=== PATIENT | female | born 1975 | race Caucasian/White ===

== ENCOUNTER 2017-10-26 19:29 | Emergency (ER) | payer OTHER ==
[~2017-10-26] VITALS: Ht 170.2 cm; Wt 59.0 kg
[~2017-10-26 19:29] MED LIST: BACTRIM DS TAB1 EACH PO; HYCET 7.5 MG-3473 ML PO; IBUPROFEN 800800 M1 PO; PREDNISONE 20 M20 MG PO; PROAIR HFA8.5 GM INH; VISTARIL50 MG PO
[2017-10-26 20:44] LABS: ABSOLUTE EOSINOPHILS 0.1 thou/uL (0.0-0.7); ABSOLUTE LYMPHOCYTES 1.4 thou/uL (0.8-5.3); ABSOLUTE MONOCYTES 0.8 thou/uL (0.0-1.2); ABSOLUTE NEUTROPHILS 4.6 thou/uL (1.6-8.1); BASOPHILS 0.7 %; EOSINOPHILS 2.1 %; HEMATOCRIT 41.7 % (37.0-47.0); HEMOGLOBIN 14.4 gm/dL (12.0-15.0); LYMPHOCYTES 19.8 %; MCH 32.4 pg (26.0-34.0); MCHC 34.5 g/dL (28.0-37.0); MCV 93.7 fL (80.0-100.0); MPV 6.8 fl. (7.2-11.1); NUCLEATED RBCS 0 /100WBC; PLATELET COUNT* 323 thou/uL (150-400); POLYS 65.4 %; RBC 4.45 mil/uL (4.20-5.00); RDW-CV 13.5 % (10.5-14.5)
[2017-10-26 20:56] LABS: ANION GAP 7 mmol/L (7-16); BUN 10 mg/dL (7-18); CALCIUM 8.8 mg/dL (8.5-10.1); CHLORIDE 102 mmol/L (98-107); CO2 31 mmol/L (21-32); CREATININE 0.7 mg/dL (0.6-1.3); GLUCOSE 84 mg/dL (70-99); POTASSIUM 3.6 mmol/L (3.5-5.1); SODIUM 140 mmol/L (136-145)
[2017-10-26 21:01] LABS: ALBUMIN 3.4 g/dL (3.4-5.0); ALKALINE PHOSPHATASE 81 U/L (46-116); SGOT 20 U/L (15-37); SGPT 24 U/L (30-65); TOTAL BILIRUBIN 0.4 mg/dL (<0.1-1.0); TROPONIN-I LEVEL <0.06 ng/mL (<0.06)
[2017-10-26] MEDS ORDERED: AUGMENTIN 875-1 EACH PO (22:38)
[2017-10-26] MEDS ORDERED: BACTROBAN CREAM30 G1 TOP (22:39)
[2017-10-26] MEDS ORDERED: TORADOL 10 MG T10 MG PO (22:39)
[2017-10-26 22:50] VITALS: BP 147/89
== END 2017-10-26 22:51 | disposition home or self-care (01) ==
LOC: M.ERS 19:29
PROVIDERS: Physician Assistant
DX: R59.9 Enlarged lymph nodes, unspecified (principal); L01.00 Impetigo, unspecified; F17.210 Nicotine dependence, cigarettes, uncomplicated; F10.20 Alcohol dependence, uncomplicated; F12.20 Cannabis dependence, uncomplicated

== ENCOUNTER 2017-10-29 15:11 | Emergency (ER) | payer OTHER ==
[~2017-10-29] VITALS: Ht 167.6 cm; Wt 59.0 kg
[~2017-10-29 15:11] MED LIST changes: +AUGMENTIN 875-1 EACH PO; +BACTROBAN CREAM30 G1 TOP; +TORADOL 10 MG T10 MG PO
[2017-10-29] MEDS ORDERED: BACTRIM DS TAB1 EACH PO (15:44)
[2017-10-29] MEDS ORDERED: HYDROCODONE-AP1 EAC6 PO (15:44)
[2017-10-29] MEDS ORDERED: PHENERGAN 25 MG25 M1 PO (15:44)
[2017-10-29] MEDS ORDERED: BACTROBAN CREAM30 G1 TOP (15:47)
[2017-10-29 16:09] VITALS: BP 178/98
== END 2017-10-29 16:16 | disposition home or self-care (01) ==
LOC: M.ERS 15:11
DX: K12.2 Cellulitis and abscess of mouth (principal); F17.210 Nicotine dependence, cigarettes, uncomplicated; Z98.890 Other specified postprocedural states

== ENCOUNTER 2017-12-03 17:40 | Emergency (ER) | payer OTHER ==
[~2017-12-03] VITALS: Ht 167.6 cm; Wt 61.2 kg
[~2017-12-03 17:40] MED LIST changes: +HYDROCODONE-AP1 EAC6 PO; +PHENERGAN 25 MG25 M1 PO
[2017-12-03 18:36] LABS: URINE BILIRUBIN NEGATIVE (Negative); URINE BLOOD 1+ (Negative); URINE CLARITY CLEAR; URINE COLOR YELLOW; URINE GLUCOSE-RANDOM NEGATIVE (Negative); URINE KETONES TRACE (Negative); URINE LEUKOCYTES-REFLEX 1+ (Negative); URINE NITRITE-REFLEX NEGATIVE (Negative); URINE PROTEIN NEGATIVE (Negative); URINE SPECIFIC GRAVITY >= 1.030 (1.005-1.030); URINE UROBILINOGEN 0.2 E.U./dl (0.2-1.0)
[2017-12-03 18:52] LABS: AMP/METHAMP POSITIVE (Negative); BARBITURATES Negative (Negative); BENZODIAZEPINES Negative (Negative); COCAINE Negative (Negative); OPIATES Negative (Negative); PCP Negative (Negative); THC POSITIVE (Negative)
[2017-12-03] MEDS ORDERED: HYDROCODONE-AP1 EAC6 PO (18:58)
[2017-12-03] MEDS ORDERED: BACTRIM DS TAB1 EACH PO (19:01)
[2017-12-03 19:08] LABS: MUCUS 4-6 Moderate strn/LPF (None Seen); SQUAMOUS >10 Many /LPF (0-3)
[2017-12-03 19:09] LABS: BACTERIA-REFLEX 1-9 Few /HPF (None Seen); CASTS None Seen /LPF (None Seen); CRYSTALS None Seen /LPF (None Seen); URINE RBC 3-10 Few /HPF (0-2); URINE WBC-REFLEX 6-15 Few /HPF (0-5)
[2017-12-03 19:15] VITALS: BP 152/107
[2017-12-03 20:06] LABS: METHADONE Negative (Negative)
--- NOTE | 2017-12-04 14:27 | EKG ---
[place] [address] ELECTROCARDIOGRAM REPORT Name: YAO BLANCHARD Room: [facility]#: [id number] Admission: 12/03/17 Attend Phys: Discharge: 12/03/17 Date of : 77 Report #: [id number] THIS REPORT FOR: //name// [facility] ED Test Date: 2017-12-03 Test Time: 18:31:10 Pat Name: YAO BLANCHARD Department: Room: Gender: F [employer] Team Member: CLOTILDE : 1975 Requested By: Ekaterina Peters Order Number: [id number] MD: Deep Santoyo Measurements Intervals [place] Rate: 127 P: 69 NM: 145 QRS: 65 QRSD: 82 T: 9 QT: 310 QTc: 451 Interpretive Statements Sinus tachycardia LAE, consider biatrial enlargement No previous ECG available for comparison Electronically Signed On 12-04-2017 14:27:24 CDT by Deep Santoyo [email or web address] <ELECTRONICALLY SIGNED> By: Deep Santoyo MD, [facility] 12/04/17 1427 30 30 Deep Santoyo MD, FACC /EPI
== END 2017-12-03 19:15 | disposition home or self-care (01) ==
LOC: M.ERS 17:40
PROVIDERS: Physician Assistant
DX: M25.552 Pain in left hip (principal); F12.10 Cannabis abuse, uncomplicated; F15.10 Other stimulant abuse, uncomplicated; N39.0 Urinary tract infection, site not specified; F17.210 Nicotine dependence, cigarettes, uncomplicated; Z98.890 Other specified postprocedural states

== ENCOUNTER 2018-05-19 19:09 | Emergency (ER) | payer OTHER ==
[~2018-05-19] VITALS: Ht 170.2 cm; Wt 59.0 kg
[2018-05-19 19:28] LABS: HEMATOCRIT 46.6 % (37.0-47.0); HEMOGLOBIN 15.9 gm/dL (12.0-15.0); MCH 31.2 pg (26.0-34.0); MCV 91.7 fL (80.0-100.0); MPV 7.4 fl. (7.2-11.1); NUCLEATED RBCS 0 /100WBC; PLATELET COUNT* 237 thou/uL (150-400); RBC 5.09 mil/uL (4.20-5.00); RDW-CV 13.3 % (10.5-14.5); WBC 12.3 thou/uL (4.0-11.0)
[2018-05-19 19:40] LABS: ANION GAP 8 mmol/L (7-16); BUN 11 mg/dL (7-18); CALCIUM 9.4 mg/dL (8.5-10.1); CHLORIDE 99 mmol/L (98-107); CO2 29 mmol/L (21-32); CREATININE 1.2 mg/dL (0.6-1.3); GLUCOSE 123 mg/dL (70-99); POTASSIUM 3.1 mmol/L (3.5-5.1); SODIUM 136 mmol/L (136-145)
[2018-05-19 19:52] LABS: ALBUMIN 3.1 g/dL (3.4-5.0); ALKALINE PHOSPHATASE 108 U/L (46-116); NT-PRO BRAIN NAT PEPTIDE 663 pg/mL (<300); SGOT 23 U/L (15-37); SGPT 19 U/L (30-65); TOTAL BILIRUBIN 0.7 mg/dL (<0.1-1.0); TOTAL PROTEIN 7.9 g/dL (6.4-8.2); TROPONIN-I LEVEL <0.06 ng/mL (<0.06)
[2018-05-19 20:11] LABS: ABSOLUTE LYMPHOCYTES 0.9 thou/uL (0.8-5.3); ABSOLUTE NEUTROPHILS 10.5 thou/uL (1.6-8.1)
[2018-05-19 20:12] LABS: PLATELET ESTIMATE ADEQUATE
[2018-05-19 20:29] LABS: URINE BILIRUBIN NEGATIVE (Negative); URINE BLOOD 3+ (Negative); URINE CLARITY CLEAR; URINE COLOR YELLOW; URINE GLUCOSE-RANDOM NEGATIVE (Negative); URINE KETONES NEGATIVE (Negative); URINE NITRITE-REFLEX NEGATIVE (Negative); URINE PROTEIN NEGATIVE (Negative); URINE SPECIFIC GRAVITY <= 1.005 (1.005-1.030); URINE UROBILINOGEN 0.2 E.U./dl (0.2-1.0)
[2018-05-19 20:30] LABS: URINE LEUKOCYTES-REFLEX 3+ (Negative)
[2018-05-19 20:38] LABS: MUCUS None Seen strn/LPF (None Seen); SQUAMOUS >10 Many /LPF (0-3)
[2018-05-19 20:39] LABS: CASTS None Seen /LPF (None Seen); CRYSTALS None Seen /LPF (None Seen); URINE RBC 3-10 Few /HPF (0-2); URINE WBC-REFLEX >25 Many /HPF (0-5)
[2018-05-19 21:33] LABS: AMP/METHAMP POSITIVE (Negative); BARBITURATES Negative (Negative); BENZODIAZEPINES Negative (Negative); COCAINE Negative (Negative); METHADONE Negative (Negative); OPIATES POSITIVE (Negative); PCP Negative (Negative); THC POSITIVE (Negative)
[2018-05-19] MEDS ORDERED: CIPROFLOXACIN500 M1 PO (21:51)
[2018-05-19] MEDS ORDERED: ACETAMINOPHEN-1 EAC1 PO (21:51)
[2018-05-19 22:13] VITALS: BP 115/75
--- NOTE | 2018-05-20 16:31 | EKG ---
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 : 1975 Requested By: Carmen Bradley Order Number: [id number] MD: Cody Grey Measurements Intervals [place] Rate: 115 P: 72 NV: 104 QRS: 62 QRSD: 93 T: -80 QT: 419 QTc: 580 Interpretive Statements Sinus tachycardia Consider left ventricular hypertrophy Nonspecific T abnormalities, diffuse leads Prolonged QT interval Compared to ECG 12/03/2017 18:31:10 T-wave abnormality now present Prolonged QT interval now present Electronically Signed On 05-20-2018 16:31:14 CDT by Cody Grey [email or web address] <ELECTRONICALLY SIGNED> By: Cody Grey MD, [facility] 05/20/18 1631 16 16 Cody Grey MD, [facility] /EPI
== END 2018-05-19 22:17 | disposition home or self-care (01) ==
LOC: M.ERS 19:09
PROVIDERS: Emergency Medicine
DX: N39.0 Urinary tract infection, site not specified (principal); R51 Headache; R41.82 Altered mental status, unspecified; F17.210 Nicotine dependence, cigarettes, uncomplicated; G89.29 Other chronic pain; M25.552 Pain in left hip; Z98.890 Other specified postprocedural states

== ENCOUNTER 2019-03-28 20:15 | Emergency (ER) | payer OTHER ==
[~2019-03-28] VITALS: Ht 167.6 cm; Wt 61.2 kg
[~2019-03-28 20:15] MED LIST changes: +ACETAMINOPHEN-1 EAC1 PO; +CIPROFLOXACIN500 M1 PO
[2019-03-28 20:58] LABS: ABSOLUTE LYMPHOCYTES 0.8 thou/uL (0.8-5.3); ABSOLUTE MONOCYTES 1.8 thou/uL (0.0-1.2); ABSOLUTE NEUTROPHILS 14.7 thou/uL (1.6-8.1); BASOPHILS 0.1 %; HEMATOCRIT 41.7 % (37.0-47.0); HEMOGLOBIN 14.2 gm/dL (12.0-15.0); LYMPHOCYTES 4.8 %; MCH 30.7 pg (26.0-34.0); MCHC 34.1 g/dL (28.0-37.0); MCV 90.1 fL (80.0-100.0); MONOCYTES 10.5 %; MPV 7.4 fl. (7.2-11.1); NUCLEATED RBCS 0 /100WBC; PLATELET COUNT* 310 thou/uL (150-400); POLYS 84.6 %; RBC 4.63 mil/uL (4.20-5.00); RDW-CV 13.8 % (10.5-14.5); WBC 17.5 thou/uL (4.0-11.0)
[2019-03-28 21:08] LABS: ANION GAP 9 mmol/L (7-16); BUN 8 mg/dL (7-18); CHLORIDE 97 mmol/L (98-107); CO2 28 mmol/L (21-32); CREATININE 0.9 mg/dL (0.6-1.3); GLUCOSE 144 mg/dL (70-99); POTASSIUM 3.8 mmol/L (3.5-5.1); SODIUM 134 mmol/L (136-145)
[2019-03-28 21:18] LABS: ALBUMIN 3.3 g/dL (3.4-5.0); ALKALINE PHOSPHATASE 98 U/L (46-116); SGOT 19 U/L (15-37); SGPT 23 U/L (30-65); TOTAL PROTEIN 7.9 g/dL (6.4-8.2); TROPONIN-I LEVEL <0.06 ng/mL (<0.06)
[2019-03-28 21:20] LABS: AMP/METHAMP POSITIVE (Negative); BARBITURATES Negative (Negative); BENZODIAZEPINES Negative (Negative); COCAINE Negative (Negative); OPIATES Negative (Negative); PCP Negative (Negative); THC POSITIVE (Negative)
[2019-03-28 21:26] LABS: METHADONE Negative (Negative)
[2019-03-28 22:57] VITALS: BP 149/89
--- NOTE | 2019-03-29 10:51 | EKG ---
[place] [address] ELECTROCARDIOGRAM REPORT Name: YAO BLANCHARD Room: [facility]#: [id number] Admission: 03/28/19 Attend Phys: Discharge: 03/28/19 Date of : 77 Report #: [id number] THIS REPORT FOR: //name// [facility] ED Test Date: 2019-03-28 Test Time: 20:59:55 Pat Name: YAO BLANCHARD Department: Room: Gender: F [employer]: [place] : 1975 Requested By: Adam Green Order Number: [id number] MD: Bhanu Batres Measurements Intervals [place] Rate: 92 P: 75 MT: 121 QRS: 72 QRSD: 98 T: 57 QT: 385 QTc: 477 Interpretive Statements Sinus rhythm Nonspecific T abnormalities, anterior leads Compared to ECG 05/19/2018 19:17:03 Sinus tachycardia no longer present Prolonged QT interval no longer present T-wave abnormality still present Electronically Signed On 03-29-2019 10:51:01 CDT by Bhanu Batres [email or web address] <ELECTRONICALLY SIGNED> By: Bhanu Batres MD, [facility] 03/29/19 1051 58 58 Bhanu Batres MD, [facility] /EPI
== END 2019-03-28 22:59 | disposition home or self-care (01) ==
LOC: M.ERS 20:15
PROVIDERS: Emergency Medicine; Nurse Practitioner Family
DX: M79.10 Myalgia, unspecified site (principal); R51 Headache; F10.10 Alcohol abuse, uncomplicated; F12.10 Cannabis abuse, uncomplicated; F15.10 Other stimulant abuse, uncomplicated; F17.210 Nicotine dependence, cigarettes, uncomplicated; G89.29 Other chronic pain; Z90.89 Acquired absence of other organs

== ENCOUNTER 2020-12-02 16:47 | Emergency (ER) | payer OTHER ==
[~2020-12-02] VITALS: Ht 170.2 cm; Wt 65.8 kg
[2020-12-02 17:14] LABS: ABSOLUTE BASOPHILS 0.1 thou/uL (0.0-0.2); ABSOLUTE EOSINOPHILS 0.1 thou/uL (0.0-0.7); ABSOLUTE LYMPHOCYTES 1.2 thou/uL (0.8-5.3); ABSOLUTE MONOCYTES 0.9 thou/uL (0.0-1.2); ABSOLUTE NEUTROPHILS 7.6 thou/uL (1.6-8.1); BASOPHILS 0.5 %; HEMATOCRIT 37.9 % (37.0-47.0); HEMOGLOBIN 12.5 gm/dL (12.0-15.0); LYMPHOCYTES 12.6 %; MCH 28.9 pg (26.0-34.0); MCHC 33.1 g/dL (28.0-37.0); MCV 87.5 fL (80.0-100.0); MONOCYTES 8.8 %; MPV 6.6 fl. (7.2-11.1); NUCLEATED RBCS 0 /100WBC; PLATELET COUNT* 445 thou/uL (150-400); POLYS 77.1 %; RBC 4.34 mil/uL (4.20-5.00); RDW-CV 14.7 % (10.5-14.5); WBC 9.8 thou/uL (4.0-11.0)
[2020-12-02 17:20] LABS: CALCIUM 8.6 mg/dL (8.5-10.1); CREATININE 0.7 mg/dL (0.6-1.3); POTASSIUM 3.4 mmol/L (3.5-5.1)
[2020-12-02 17:25] LABS: ALBUMIN 2.9 g/dL (3.4-5.0); TOTAL BILIRUBIN 0.5 mg/dL (<0.1-1.0); TOTAL PROTEIN 7.8 g/dL (6.4-8.2)
[2020-12-02 17:32] LABS: URINE BILIRUBIN NEGATIVE (Negative); URINE BLOOD 3+ (Negative); URINE CLARITY CLEAR; URINE COLOR DARK YELLOW; URINE GLUCOSE-RANDOM NEGATIVE (Negative); URINE KETONES 1+ (Negative); URINE LEUKOCYTES 1+ (Negative); URINE NITRITE NEGATIVE (Negative); URINE PROTEIN TRACE (Negative)
[2020-12-02 17:40] LABS: SQUAMOUS 4-10 Moderate /LPF (0-3)
[2020-12-02 17:41] LABS: CRYSTALS None Seen /LPF (None Seen); MUCUS 0-3 Light strn/LPF (None Seen)
[2020-12-02 17:42] LABS: URINE WBC 6-15 Few /HPF (0-5)
[2020-12-02 17:43] LABS: CASTS None Seen /LPF (None Seen); URINE RBC 3-10 Few /HPF (0-2)
[2020-12-02] MEDS ORDERED: KEFLEX500 M1 PO (18:49)
[2020-12-02 19:20] VITALS: BP 120/76
== END 2020-12-02 19:20 | disposition home or self-care (01) ==
LOC: M.ERS 16:47
PROVIDERS: Emergency Medicine
DX: K59.00 Constipation, unspecified (principal); N39.0 Urinary tract infection, site not specified; F17.210 Nicotine dependence, cigarettes, uncomplicated; Z98.890 Other specified postprocedural states